=== PATIENT | male | born 1995 | race American Indian/Alaskan Native ===

== ENCOUNTER 2019-10-04 14:24 | Emergency (ER) | payer SELFPAY ==
[2019-10-04] MEDS ORDERED: ACETAMINOPHEN 325 MG TAB PO ONE (16:36)
[2019-10-04 20:03] VITALS: BP 124/81
--- NOTE | 2019-10-04 20:24 | Emergency Department Report ---
- General Chief Complaint: Upper Respiratory Infection Stated Complaint: FLU SYMPTOMS Time Seen by Provider: 10/04/19 18:41 Source: patient Mode of arrival: Ambulatory Limitations: No Limitations - History of Present Illness MD Complaint: fever, cough, sore throat, rhinorrhea, nasal congestion, sinus pain, other (myalgia) -: Sudden, days(s) (3) Quality: dull Consistency: constant Improves With: nothing Worsens With: activity Associated Symptoms: fever, chills, headache, rhinorrhea, nasal congestion, cough. denies: vomiting, confusion, weight loss, epistaxis, hoarseness - Related Data Previous Rx's Medication Instructions Recorded Last Taken Type Benzonatate [Tessalon Perles] 100 mg PO Q8HR #20 capsule 10/04/19 Unknown Rx predniSONE [Deltasone] 50 mg PO QDAY #5 tab 10/04/19 Unknown Rx Allergies Allergy/AdvReac Type Severity Reaction Status Date / Time No Known Allergies Allergy Verified 10/04/19 20:16 ED Review of Systems ROS: Stated complaint: FLU SYMPTOMS Other details as noted in HPI Comment: All other systems reviewed and negative ED Past Medical Hx - Past Medical History Previous Medical History?: No - Surgical History Past Surgical History?: No - Social History Smoking Status: Never Smoker Substance Use Type: None - Medications Home Medications: Home Medications Medication Instructions Recorded Confirmed Last Taken Type Benzonatate [Tessalon Perles] 100 mg PO Q8HR #20 capsule 10/04/19 Unknown Rx predniSONE [Deltasone] 50 mg PO QDAY #5 tab 10/04/19 Unknown Rx ED Physical Exam - General Limitations: No Limitations General appearance: alert, in no apparent distress - Head Head exam: Present: atraumatic, normocephalic - Eye Eye exam: Present: normal appearance, PERRL, EOMI Pupils: Present: normal accommodation - ENT ENT exam: Present: mucous membranes moist - Neck Neck exam: Present: normal inspection - Respiratory Respiratory exam: Present: normal lung sounds bilaterally. Absent: respiratory distress, wheezes, rales, rhonchi, chest wall tenderness, accessory muscle use - Cardiovascular Cardiovascular Exam: Present: regular rate, normal rhythm. Absent: systolic murmur, diastolic murmur, rubs, gallop - GI/Abdominal GI/Abdominal exam: Present: soft, normal bowel sounds - Rectal Rectal exam: Present: deferred - Extremities Exam Extremities exam: Present: normal inspection - Back Exam Back exam: Present: normal inspection - Neurological Exam Neurological exam: Present: alert, oriented X3, CN II-XII intact, normal gait. Absent: motor sensory deficit, reflexes normal - Psychiatric Psychiatric exam: Present: normal affect, normal mood. Absent: anxious, flat affect - Skin Skin exam: Present: warm, dry, intact, normal color. Absent: rash, diaphoretic, erythema, petechiae, pallor, abrasion ED Course Vital Signs 10/04/19 10/04/19 14:27 20:02 Temperature 102.3 F H 98.8 F Pulse Rate 105 H 82 Respiratory 16 16 Rate Blood Pressure 126/75 Blood Pressure 124/81 [Left] O2 Sat by Pulse 97 98 Oximetry ED Medical Decision Making - Medical Decision Making 24 y/o AAM patient presents with symptoms suspicious for likely viral upper respiratory infection. Differential includes bacterial pneumonia, sinusitis, allergic rhinitis, . Do not suspect underlying cardiopulmonary process. I considered, but think unlikely, dangerous causes of this patients symptoms to include ACS, CHF or COPD exacerbations, pneumonia, pneumothorax. Patient is nontoxic appearing and not in need of emergent medical intervention. Plan: reassurance, reassessment, over the counter medications, discharge with PCP followup Critical care attestation.: If time is entered above; I have spent that time in minutes in the direct care of this critically ill patient, excluding procedure time. ED Disposition Clinical Impression: Viral syndrome, Fever Disposition: DC-01 TO HOME OR SELFCARE Is pt being admited?: No Does the pt Need Aspirin: No Condition: Stable Instructions: Viral Syndrome (ED), Fever in Adults (ED), Cold Symptoms (ED) Prescriptions: predniSONE [Deltasone] 50 mg PO QDAY #5 tab Benzonatate [Tessalon Perles] 100 mg PO Q8HR #20 capsule Referrals: [facility] [Provider Group] - 3-5 Days NATIVIDAD JENKINS MD [Staff Physician] - 3-5 Days
== END 2019-10-04 20:25 | disposition home or self-care (01) ==
LOC: ED 14:24
DX: B34.9 Viral infection, unspecified (principal); Z79.899 Other long term (current) drug therapy

== ENCOUNTER 2021-03-22 21:22 | Emergency (ER) | payer SELFPAY ==
[2021-03-22 23:41] VITALS: BP 127/74
[2021-03-23 00:21] LABS: Hemoglobin 15.6 gm/dl (11.8-15.2); Mean Corpuscular HGB Conc 35 % (32-34); Mean Corpuscular Volume 92 fl (84-94); Platelet Count 271 K/mm3 (140-440); Red Blood Count 4.77 M/mm3 (3.65-5.03); Red Cell Distribution Width 12.8 % (13.2-15.2)
[2021-03-23 00:23] LABS: Bilirubin,Urine NEG (Negative); Blood,Urine NEG (Negative); Color,Urine Yellow (Yellow); Mucus,Urine 3+ /HPF; Protein,Urine <15 mg/dL mg/dL (Negative); Urobilinogen,Urine < 2.0 mg/dL (<2.0)
[2021-03-23 00:39] LABS: Alanine Aminotransferase 8 units/L (7-56); Albumin 4.2 g/dL (3.9-5); BUN/Creatinine Ratio 12; Blood Urea Nitrogen 11 mg/dL (9-20); Hemolysis Index 7
[2021-03-23] MEDS ORDERED: ALUM-MAG HYDROXIDE-SIMETHICONE 200-200-20MG/5ML ORAL LIQD 30 ML PO ONE (01:08)
[2021-03-23] MEDS ORDERED: LIDOCAINE VISCOUS 2% 15 ML ORAL LIQD PO ONE (01:08)
[2021-03-23] MEDS ORDERED: FAMOTIDINE 20 MG TAB PO ONE (01:08)
[2021-03-23] MEDS ORDERED: ONDANSETRON 4 MG ODT TAB PO ONE (01:08)
--- NOTE | 2021-03-23 01:18 | Emergency Department Report ---
ED Abdominal Pain HPI - General Chief Complaint: Abdominal Pain Stated Complaint: SHARP STOMACH PAIN/DIARRHEA Source: patient Mode of arrival: Ambulatory Limitations: No Limitations - History of Present Illness Initial Comments: Patient is a 25-year-old -[place] male with a history of HIV who presents to the ED with complaint of acute onset persistent intermittent left upper quadrant and epigastric pain for the last 1 week. Patient states that the pain is worse with food intake and sometimes it has a burning sensation, resulting in nausea. Patient denies hematemesis, diarrhea, dysuria, chest pain or shortness of breath, fever, chills, dizziness, syncope, hematuria, traumatic injury or fall and heavy lifting, neck pain, diaphoresis, or cough. MD Complaint: abdominal pain (LUQ and epigastric pain) -: Sudden, week(s) (1) Location: LUQ, epigastric Radiation: LUQ, epigastric Migration to: no migration Severity: moderate Severity scale (0 -10): 5 Quality: aching, burning Consistency: intermittent Worsens With: eating Associated Symptoms: denies other symptoms, nausea, anorexia. denies: vomiting, diarrhea, fever, chills, constipation, dysuria, hematemesis, hematochezia, melena, hematuria, syncope - Related Data Previous Rx's Medication Instructions Recorded Last Taken Type Benzonatate [Tessalon Perles] 100 mg PO Q8HR #20 capsule 10/04/19 Unknown Rx predniSONE [Deltasone] 50 mg PO QDAY #5 tab 10/04/19 Unknown Rx Famotidine [Pepcid] 20 mg PO BID #60 tablet 03/23/21 Unknown Rx Omeprazole 40 mg PO DAILY #30 capsule. 03/23/21 Unknown Rx Ondansetron [Zofran Odt] 4 mg PO Q6HR PRN #15 tab.rapdis 03/23/21 Unknown Rx Allergies Allergy/AdvReac Type Severity Reaction Status Date / Time No Known Allergies Allergy Verified 10/04/19 20:16 ED Review of Systems ROS: Stated complaint: SHARP STOMACH PAIN/DIARRHEA Other details as noted in HPI Constitutional: denies: chills, fever Eyes: denies: eye pain, eye discharge, vision change ENT: denies: ear pain, throat pain Respiratory: denies: cough, shortness of breath, wheezing Cardiovascular: denies: chest pain, palpitations Endocrine: no symptoms reported Gastrointestinal: abdominal pain (Mild Epigastric and LUQ pain), nausea. denies: vomiting, diarrhea Genitourinary: denies: urgency, dysuria Musculoskeletal: denies: back pain, joint swelling, arthralgia Skin: denies: rash, lesions Neurological: denies: headache, weakness, paresthesias Psychiatric: denies: anxiety, depression Hematological/Lymphatic: denies: easy bleeding, easy bruising ED Past Medical Hx - Past Medical History Previous Medical History?: Yes Hx HIV: Yes (undetectable) - Surgical History Past Surgical History?: No - Social History Smoking Status: Never Smoker Substance Use Type: None - Medications Home Medications: Home Medications Medication Instructions Recorded Confirmed Last Taken Type Benzonatate [Tessalon Perles] 100 mg PO Q8HR #20 capsule 10/04/19 Unknown Rx predniSONE [Deltasone] 50 mg PO QDAY #5 tab 10/04/19 Unknown Rx Famotidine [Pepcid] 20 mg PO BID #60 tablet 03/23/21 Unknown Rx Omeprazole 40 mg PO DAILY #30 capsule. 03/23/21 Unknown Rx Ondansetron [Zofran Odt] 4 mg PO Q6HR PRN #15 tab.rapdis 03/23/21 Unknown Rx ED Physical Exam - General Limitations: No Limitations General appearance: alert, in no apparent distress - Head Head exam: Present: atraumatic, normocephalic, normal inspection - Eye Eye exam: Present: normal appearance, PERRL, EOMI Pupils: Present: normal accommodation - ENT ENT exam: Present: normal exam, normal orophraynx, mucous membranes moist, TM's normal bilaterally, normal external ear exam - Neck Neck exam: Present: normal inspection, full ROM - Respiratory Respiratory exam: Present: normal lung sounds bilaterally. Absent: respiratory distress, wheezes, rales, stridor, chest wall tenderness, accessory muscle use, decreased breath sounds - Cardiovascular Cardiovascular Exam: Present: regular rate, normal rhythm, normal heart sounds. Absent: systolic murmur, diastolic murmur, rubs, gallop - GI/Abdominal GI/Abdominal exam: Present: soft, tenderness (Palpable Mild epigastric and LUQ tenderness), normal bowel sounds. Absent: guarding, rebound, hyperactive bowel sounds, hypoactive bowel sounds - Extremities Exam Extremities exam: Present: normal inspection, full ROM, normal capillary refill - Back Exam Back exam: Present: normal inspection, full ROM. Absent: CVA tenderness (L), muscle spasm, paraspinal tenderness, vertebral tenderness - Neurological Exam Neurological exam: Present: alert, oriented X3, CN II-XII intact, normal gait, reflexes normal - Psychiatric Psychiatric exam: Present: normal affect, normal mood - Skin Skin exam: Present: warm, dry, intact, normal color. Absent: rash ED Course Vital Signs 03/22/21 23:38 Temperature 98.2 F Pulse Rate 62 Respiratory 16 Rate Blood Pressure 127/74 [Right] O2 Sat by Pulse 99 Oximetry ED Medical Decision Making - Lab Data Result diagrams: 03/22/21 23:50 03/22/21 23:50 - Radiology Data Radiology results: report reviewed, image reviewed [facility] [address] [place] [address] XRay Report Signed Patient: MARISOL SIMMONS MR# : [id number] : 1995 Acct:[id number] Age/Sex: 25 / M ADM Date: 03/22/21 Loc: ED Attending Dr: Ordering Physician: JANIS BECK Date of Service: 03/23/21 Procedure(s): XR abd series w cxr 1V Accession Number(s): [id number] cc: JANIS BECK Fluoro Time In Minutes: ABDOMEN 3 VIEW(S) INDICATION / CLINICAL INFORMATION: LUQ Pain. COMPARISON: None available. FINDINGS: TUBES / LINES: None. BOWEL GAS PATTERN: No significant abnormality. FREE AIR / EXTRALUMINAL GAS: None seen. ADDITIONAL FINDINGS: No significant additional findings. CHEST: Visualized chest shows no significant abnormality. IMPRESSION: 1. No significant abnormality. Signer Name: Carlitos Thomas MD Signed: 03/23/2021 1:32 AM Workstation Name: [id number] Transcribed By: CW Dictated By: PEPE THOMAS MD Electronically Authenticated By: PEPE THOMAS MD Signed Date/Time: 03/23/21131 DD/ 1 TD/TT: Print Cancel - Medical Decision Making This is a 25-year-old -[place] male with a history of HIV who presents to the ED with complaint of acute onset persistent intermittent left upper quadrant and epigastric pain for the last 1 week. Patient states that the pain is worse with food intake and sometimes it has a burning sensation, resulting in nausea. In the ED, patient is alert and oriented x3 and is not in any distres s. Lab test results were reviewed and are all nonactionable except for acute leukocytosis of 11,800. The abdomen series and chest x-ray showed no acute abnormalities. Patient was treated for acid reflux with GI cocktail and Pepcid as well as Zofran. On reevaluation, patient's pain is well controlled medication. Patient will discharge home on antacids and antiemetics, and was advised to follow-up with his primary care physician in 5 to 7 days for reevaluation. Patient advised return to the ED immediately if symptoms get worse. - Differential Diagnosis GERD; Gastroenteritis; GERD Critical care attestation.: If time is entered above; I have spent that time in minutes in the direct care of this critically ill patient, excluding procedure time. ED Disposition Clinical Impression: Acute epigastric pain GERD (gastroesophageal reflux disease) Qualifiers: Esophagitis presence: esophagitis presence not specified Qualified Code(s): K21.9 - Gastro-esophageal reflux disease without esophagitis Disposition: DC-01 TO HOME OR SELFCARE Is pt being admited?: No Does the pt Need Aspirin: No Condition: Stable Instructions: Abdominal Pain, Adult, [id number], Gastroesophageal Reflux Disease, Adult, [id number] Additional Instructions: The chest x-ray and abdomen KUB x-ray showed no acute abnormalities. Lab test results were reviewed and are all nonactionable. Your symptoms are likely due to GERD or acid reflux complications. Therefore take medication with food, drink plenty of fluids and follow-up with your primary care physician in 5 to 7 days for reevaluation. Return to the ED immediately if symptoms get worse. Prescriptions: Omeprazole 40 mg PO DAILY #30 capsule. Famotidine [Pepcid] 20 mg PO BID #60 tablet Ondansetron [Zofran Odt] 4 mg PO Q6HR PRN #15 tab.rapdis PRN Reason: Nausea Referrals: [facility] [Provider Group] - 3-5 Days Time of Disposition: 01:52 Print Language: GERMAN
[2021-03-23 01:33] LABS: Total Cells Counted 100
[2021-03-23 01:34] LABS: Platelet Estimate Consistent w Auto; RBC Morphology Normal
--- NOTE | 2021-03-23 01:37 | XRay Report ---
ABDOMEN 3 VIEW(S) INDICATION / CLINICAL INFORMATION: LUQ Pain. COMPARISON: None available. FINDINGS: TUBES / LINES: None. BOWEL GAS PATTERN: No significant abnormality. FREE AIR / EXTRALUMINAL GAS: None seen. ADDITIONAL FINDINGS: No significant additional findings. CHEST: Visualized chest shows no significant abnormality. IMPRESSION: 1. No significant abnormality. Signer Name: Carlitos Maloney MD Signed: 03/23/2021 1:32 AM Workstation Name: [id number]
== END 2021-03-23 02:10 | disposition home or self-care (01) ==
LOC: ED 21:22
DX: K21.9 Gastro-esophageal reflux disease without esophagitis (principal); Z79.899 Other long term (current) drug therapy
CPT/HCPCS: 36415; 74022; 80053; 81001; 85007; 85025; 99284; Q0162